=== PATIENT | male | born 1955 | race African-American/Black ===

== ENCOUNTER 2021-05-27 12:53 | Inpatient (IN) | payer BC, OTHER ==
[2021-05-27 13:38] VITALS: BMI 24.3
[2021-05-27] MEDS ORDERED: methaDONE HCL 10 MG TABLET (FOR DETOX USE ONLY) PO ONE (16:39)
[2021-05-27] MEDS ORDERED: IBUPROFEN 400 MG TABLET (FP) PO PRN (16:55)
[2021-05-27] MEDS ORDERED: MAGNESIUM HYDROX 2400MG/30ML ORAL SUSPENSION 30 ML CUP PO PRN (16:55)
[2021-05-27] MEDS ORDERED: BISMUTH SUBSALICYLATE 524 MG/30 ML PO PRN (16:55)
[2021-05-27] MEDS ORDERED: NICOTINE 10 MG CARTRIDGE (INHALER) IH PRN (16:55)
[2021-05-27] MEDS ORDERED: MAG HYDROX/AL HYDROX/SIMETH 30 ML UNIT-DOSE CUP PO PRN (16:55)
[2021-05-27] MEDS ORDERED: ONDANSETRON *ODT* 4 MG TABLET SL PRN (16:55)
[2021-05-27] MEDS ORDERED: METHOCARBAMOL 500 MG TABLET PO PRN (16:55)
[2021-05-27] MEDS ORDERED: MENTHOL/PHENOL 1 EACH UD MM PRN (16:55)
[2021-05-27] MEDS ORDERED: ACETAMINOPHEN 325 MG TABLET (FP) PO PRN ×2 (16:55)
[2021-05-27] MEDS ORDERED: MAGNESIUM CITRATE 300 ML BOTTLE PO PRN (16:55)
[2021-05-27] MEDS: cloNIDine HCL 0.1 MG TABLET PO PRN (18:45)
[2021-05-27] MEDS: hydrOXYzine PAMOATE 25 MG CAPSULE (FP) PO SCH ×2 (19:35→22:25)
[2021-05-27] MEDS: MELATONIN 5 MG TABLETS PO SCH (22:25)
[2021-05-27] MEDS: THIAMINE HCL 100 MG TABLET (FP) PO SCH (22:25)
[2021-05-28] MEDS: hydrOXYzine PAMOATE 25 MG CAPSULE (FP) PO SCH ×3 (06:43→15:19)
[2021-05-28 11:33] LABS: HEMATOCRIT 35.7 % (35.4-49); HEMOGLOBIN 11.8 GM/dL (11.7-16.9); MCH 27.7 pg (25.7-33.7); MCHC 33.1 g/dl (32.0-35.9); MEAN CELL VOLUME 83.6 fl (80-96); PLATELET COUNT 163 10^3/uL (134-434); RBC 4.28 M/mm3 (4.00-5.60); RDW 18.6 % (11.9-15.9); WHITE BLOOD COUNT 5.6 K/mm3 (4.0-10.0)
[2021-05-28] MEDS: cloNIDine HCL 0.1 MG TABLET PO PRN (11:34)
[2021-05-28] MEDS: PRENATAL VITAMINS W/ FOLIC ACID TABLET (FP) PO SCH (11:35)
[2021-05-28 11:38] LABS: BLOOD UREA NITROGEN 11.4 mg/dL (7-18)
[2021-05-28 11:39] LABS: ALBUMIN 3.2 g/dl (3.4-5.0); CALCIUM 8.9 mg/dL (8.5-10.1)
[2021-05-28 11:44] LABS: BILIRUBIN,TOTAL 1.1 mg/dL (0.2-1); TOT PROT 6.9 g/dl (6.4-8.2)
[2021-05-28] MEDS: MELATONIN 5 MG TABLETS PO SCH (22:49)
[2021-05-28] MEDS: THIAMINE HCL 100 MG TABLET (FP) PO SCH (22:49)
[2021-05-29] MEDS: cloNIDine HCL 0.1 MG TABLET PO PRN (08:31)
[2021-05-29] MEDS: hydrOXYzine PAMOATE 25 MG CAPSULE (FP) PO PRN ×3 (08:31→22:10)
[2021-05-29] MEDS ORDERED: methaDONE HCL 10 MG TABLET (FOR DETOX USE ONLY) PO ONE (10:00)
[2021-05-29] MEDS: PRENATAL VITAMINS W/ FOLIC ACID TABLET (FP) PO SCH (10:36)
[2021-05-29] MEDS ORDERED: PENICILLIN G BENZATHINE 2,400,000 UNIT/4 ML PFS IM ONE (12:41)
[2021-05-29] MEDS: THIAMINE HCL 100 MG TABLET (FP) PO SCH (22:10)
[2021-05-29] MEDS: MELATONIN 5 MG TABLETS PO SCH (22:10)
[2021-05-29 23:00] VITALS: TEMP 96.9
[2021-05-30] MEDS ORDERED: cloNIDine HCL 0.1 MG TABLET PO ONE (09:15)
[2021-05-30 09:30] VITALS: BP 159/105; PULSE 67
== END 2021-05-30 09:20 | disposition home or self-care (01) | DRG 897 ==
LOC: YASAS 12:53 → Y3N 17:07
PROVIDERS: ADMIT Allergy & Immunology; ATTEND Allergy & Immunology
PROC: HZ2ZZZZ Detoxification Services for Substance Abuse Treatment (ICD-10-PCS; principal; 2021-05-27)
DX: F11.23 Opioid dependence with withdrawal (principal); F14.20 Cocaine dependence, uncomplicated; F17.210 Nicotine dependence, cigarettes, uncomplicated; A53.0 Latent syphilis, unspecified as early or late
CPT/HCPCS: 36415; 71046-TC-FY; 80053; 85027; 86593; 86780; C9803; J0735; U0003; U0005

== ENCOUNTER 2021-11-12 13:22 | Inpatient (IN) | payer BC, OTHER ==
[2021-11-12 14:58] VITALS: BMI 27.1
[2021-11-12] MEDS ORDERED: ACETAMINOPHEN 325 MG TABLET (FP) PO PRN ×2 (15:48)
[2021-11-12] MEDS ORDERED: MAGNESIUM CITRATE 300 ML BOTTLE PO PRN (15:48)
[2021-11-12] MEDS ORDERED: NALOXONE (NARCAN) HCL 4 MG/0.1 ML SPRAY NS PRN (15:48)
[2021-11-12] MEDS ORDERED: MAG HYDROX/AL HYDROX/SIMETH 30 ML UNIT-DOSE CUP PO PRN (15:48)
[2021-11-12] MEDS ORDERED: MENTHOL/PHENOL 1 EACH UD MM PRN (15:48)
[2021-11-12] MEDS ORDERED: MAGNESIUM HYDROX 2400MG/30ML ORAL SUSPENSION 30 ML CUP PO PRN (15:48)
[2021-11-12] MEDS ORDERED: cloNIDine HCL 0.1 MG TABLET PO PRN (15:48)
[2021-11-12] MEDS ORDERED: methaDONE HCL 10 MG TABLET (FOR DETOX USE ONLY) PO ONE (15:48)
[2021-11-12] MEDS ORDERED: BISMUTH SUBSALICYLATE 524 MG/30 ML PO PRN (15:48)
[2021-11-12] MEDS ORDERED: ONDANSETRON *ODT* 4 MG TABLET SL PRN (15:48)
[2021-11-12] MEDS ORDERED: LOPERAMIDE HCL 2 MG CAPSULE PO PRN (15:48)
[2021-11-12] MEDS ORDERED: NICOTINE 10 MG CARTRIDGE (INHALER) IH PRN (15:48)
[2021-11-12] MEDS ORDERED: IBUPROFEN 400 MG TABLET (FP) PO PRN (15:48)
[2021-11-12] MEDS: hydrOXYzine PAMOATE 25 MG CAPSULE (FP) PO SCH ×2 (17:55→22:29)
[2021-11-12] MEDS: MELATONIN 5 MG TABLETS PO SCH (22:29)
[2021-11-12] MEDS: THIAMINE HCL 100 MG TABLET (FP) PO SCH (22:29)
[2021-11-13] MEDS: hydrOXYzine PAMOATE 25 MG CAPSULE (FP) PO SCH ×5 (06:38→23:06)
[2021-11-13 11:01] LABS: HEMATOCRIT 32.2 % (35.4-49); HEMOGLOBIN 10.8 GM/dL (11.7-16.9); MCH 28.2 pg (25.7-33.7); MCHC 33.6 g/dl (32.0-35.9); MEAN CELL VOLUME 83.8 fl (80-96); MEAN PLT VOLUME 8.6 fl (7.5-11.1); PLATELET COUNT 158 10^3/uL (134-434); RBC 3.84 M/mm3 (4.00-5.60); RDW 16.6 % (11.9-15.9); WHITE BLOOD COUNT 5.6 K/mm3 (4.0-10.0)
[2021-11-13] MEDS ORDERED: methaDONE HCL 10 MG TABLET (FOR DETOX USE ONLY) ONE (11:05)
[2021-11-13] MEDS: PRENATAL VITAMINS W/ FOLIC ACID TABLET (FP) PO SCH (11:07)
[2021-11-13 11:13] LABS: BLOOD UREA NITROGEN 16.4 mg/dL (7-18); CALCIUM 8.2 mg/dL (8.5-10.1)
[2021-11-13 11:18] LABS: BILIRUBIN,TOTAL 0.4 mg/dL (0.2-1)
[2021-11-13 11:21] LABS: TOT PROT 6.1 g/dl (6.4-8.2)
[2021-11-13] MEDS: THIAMINE HCL 100 MG TABLET (FP) PO SCH (23:06)
[2021-11-13] MEDS: MELATONIN 5 MG TABLETS PO SCH (23:06)
[2021-11-14] MEDS: hydrOXYzine PAMOATE 25 MG CAPSULE (FP) PO SCH ×5 (08:39→23:00)
[2021-11-14] MEDS ORDERED: methaDONE HCL 10 MG TABLET (FOR DETOX USE ONLY) PO ONE (10:00)
[2021-11-14] MEDS: PRENATAL VITAMINS W/ FOLIC ACID TABLET (FP) PO SCH (11:13)
[2021-11-14] MEDS: THIAMINE HCL 100 MG TABLET (FP) PO SCH (23:00)
[2021-11-14] MEDS: MELATONIN 5 MG TABLETS PO SCH (23:00)
[2021-11-15] MEDS: hydrOXYzine PAMOATE 25 MG CAPSULE (FP) PO SCH ×5 (07:14→23:12)
[2021-11-15] MEDS ORDERED: methaDONE HCL 10 MG TABLET (FOR DETOX USE ONLY) ONE (09:16)
[2021-11-15] MEDS: PRENATAL VITAMINS W/ FOLIC ACID TABLET (FP) PO SCH (10:15)
[2021-11-15] MEDS: diazePAM 5 MG TABLET PO PRN ×2 (10:15→17:53)
[2021-11-15] MEDS: METHOCARBAMOL 500 MG TABLET PO PRN (10:16)
[2021-11-15] MEDS ORDERED: cloNIDine HCL 0.1 MG TABLET PO PRN (11:36)
[2021-11-15] MEDS: HYDROCHLOROTHIAZIDE 25 MG TABLET (FP) PO SCH (15:06)
[2021-11-15] MEDS: THIAMINE HCL 100 MG TABLET (FP) PO SCH (23:12)
[2021-11-15] MEDS: MELATONIN 5 MG TABLETS PO SCH (23:12)
[2021-11-16] MEDS: hydrOXYzine PAMOATE 25 MG CAPSULE (FP) PO SCH ×6 (07:51→22:06)
[2021-11-16] MEDS ORDERED: methaDONE HCL 10 MG TABLET (FOR DETOX USE ONLY) PO ONE (10:00)
[2021-11-16] MEDS: diazePAM 5 MG TABLET PO PRN (10:25)
[2021-11-16] MEDS: METHOCARBAMOL 500 MG TABLET PO PRN (10:32)
[2021-11-16] MEDS: HYDROCHLOROTHIAZIDE 25 MG TABLET (FP) PO SCH (10:32)
[2021-11-16] MEDS: PRENATAL VITAMINS W/ FOLIC ACID TABLET (FP) PO SCH (10:33)
[2021-11-16] MEDS: MELATONIN 5 MG TABLETS PO SCH (22:06)
[2021-11-16] MEDS: THIAMINE HCL 100 MG TABLET (FP) PO SCH (22:06)
[2021-11-17] MEDS: hydrOXYzine PAMOATE 25 MG CAPSULE (FP) PO SCH ×2 (06:07→10:48)
[2021-11-17 10:41] VITALS: BP 121/67; PULSE 66; TEMP 98.2
[2021-11-17] MEDS: HYDROCHLOROTHIAZIDE 25 MG TABLET (FP) PO SCH (10:48)
[2021-11-17] MEDS: PRENATAL VITAMINS W/ FOLIC ACID TABLET (FP) PO SCH (10:49)
== END 2021-11-17 11:07 | disposition home or self-care (01) | DRG 897 ==
LOC: YASAS 13:22 → Y3N 17:28
PROVIDERS: ADMIT Allergy & Immunology; ATTEND Allergy & Immunology
PROC: HZ2ZZZZ Detoxification Services for Substance Abuse Treatment (ICD-10-PCS; principal; 2021-11-12)
DX: F11.23 Opioid dependence with withdrawal (principal); F14.20 Cocaine dependence, uncomplicated; F17.210 Nicotine dependence, cigarettes, uncomplicated; A53.0 Latent syphilis, unspecified as early or late; I10 Essential (primary) hypertension; Z86.19 Personal history of other infectious and parasitic diseases; Z91.018 Allergy to other foods
CPT/HCPCS: 36415; 80053; 85027; 86593; 86780; C9803; J0735; U0003; U0005

== ENCOUNTER 2021-12-24 12:32 | Inpatient (IN) | payer BC, OTHER ==
[2021-12-24] MEDS ORDERED: METHOCARBAMOL 500 MG TABLET PO PRN (13:37)
[2021-12-24] MEDS ORDERED: MAG HYDROX/AL HYDROX/SIMETH 30 ML UNIT-DOSE CUP PO PRN (13:37)
[2021-12-24] MEDS ORDERED: BENZOCAINE/MENTHOL (CHLORASEPTIC ) LOZENGE MM PRN (13:37)
[2021-12-24] MEDS ORDERED: LOPERAMIDE HCL 2 MG CAPSULE PO PRN (13:37)
[2021-12-24] MEDS ORDERED: ACETAMINOPHEN 325 MG TABLET (FP) PO PRN ×2 (13:37)
[2021-12-24] MEDS ORDERED: MAGNESIUM CITRATE 300 ML BOTTLE PO PRN (13:37)
[2021-12-24] MEDS ORDERED: BISMUTH SUBSALICYLATE 524 MG/30 ML PO PRN (13:37)
[2021-12-24] MEDS ORDERED: ONDANSETRON *ODT* 4 MG TABLET SL PRN (13:37)
[2021-12-24] MEDS ORDERED: IBUPROFEN 400 MG TABLET (FP) PO PRN (13:37)
[2021-12-24] MEDS ORDERED: DICYCLOMINE HCL 10 MG CAPSULE PO PRN (13:37)
[2021-12-24] MEDS ORDERED: MAGNESIUM HYDROX 2400MG/30ML ORAL SUSPENSION 30 ML CUP PO PRN (13:37)
[2021-12-24] MEDS ORDERED: NALOXONE HCL (KLOXXADO) 8 MG SPRAY NS PRN (13:45)
[2021-12-24] MEDS ORDERED: methaDONE HCL 10 MG TABLET (FOR DETOX USE ONLY) PO ONE (15:30)
[2021-12-24 16:07] VITALS: BMI 23.7
[2021-12-24 17:07] LABS: HEMATOCRIT 38.4 % (35.4-49); HEMOGLOBIN 12.1 GM/dL (11.7-16.9); MCHC 31.6 g/dl (32.0-35.9); MEAN CELL VOLUME 85.4 fl (80-96); MEAN PLT VOLUME 8.7 fl (7.5-11.1); PLATELET COUNT 266 10^3/uL (134-434); RDW 16.6 % (11.9-15.9); WHITE BLOOD COUNT 4.9 K/mm3 (4.0-10.0)
[2021-12-24 17:16] LABS: ALBUMIN 3.8 g/dl (3.4-5.0); BLOOD UREA NITROGEN 12.5 mg/dL (7-18)
[2021-12-24 17:21] LABS: BILIRUBIN,TOTAL 0.7 mg/dL (0.2-1); TOT PROT 7.3 g/dl (6.4-8.2)
[2021-12-24] MEDS ORDERED: BUPRENORPHINE HCL 150 MCG, BUPRENORPHINE HCL 75 MCG BC PRN (18:36)
[2021-12-24] MEDS ORDERED: cloNIDine HCL 0.1 MG TABLET PO ONE (18:36)
[2021-12-24] MEDS ORDERED: BUPRENORPHINE HCL 150 MCG, BUPRENORPHINE HCL 75 MCG BC ONE (18:36)
[2021-12-24] MEDS ORDERED: diazePAM 5 MG TABLET PO PRN (18:36)
[2021-12-24] MEDS ORDERED: BUPRENORPHINE HCL 150 MCG FILM BC ONE (18:43)
[2021-12-24] MEDS ORDERED: BUPRENORPHINE HCL 75 MCG FILM BC ONE (18:44)
[2021-12-24] MEDS: hydrOXYzine PAMOATE 25 MG CAPSULE (FP) PO SCH ×3 (18:46→22:49)
[2021-12-24] MEDS ORDERED: cloNIDine HCL 0.1 MG TABLET PO PRN (22:37)
[2021-12-24] MEDS: MELATONIN 5 MG TABLETS PO SCH (22:49)
[2021-12-24] MEDS: THIAMINE HCL 100 MG TABLET (FP) PO SCH (22:49)
[2021-12-25] MEDS ORDERED: BUPRENORPHINE HCL 150 MCG, BUPRENORPHINE HCL 75 MCG BC PRN
[2021-12-25] MEDS ORDERED: BUPRENORPHINE HCL 75 MCG FILM BC ONE ×2 (04:36→17:16)
[2021-12-25] MEDS ORDERED: BUPRENORPHINE HCL 150 MCG FILM BC ONE ×2 (04:36→17:15)
[2021-12-25] MEDS: hydrOXYzine PAMOATE 25 MG CAPSULE (FP) PO SCH ×5 (06:13→22:41)
[2021-12-25] MEDS: BUPRENORPHINE HCL 150 MCG, BUPRENORPHINE HCL 75 MCG BC SCH ×2 (06:13→18:00)
[2021-12-25] MEDS: PRENATAL VITAMINS W/ FOLIC ACID TABLET (FP) PO SCH (11:29)
[2021-12-25] MEDS: HYDROCHLOROTHIAZIDE 25 MG TABLET (FP) PO SCH ×2 (11:30→12:23)
[2021-12-25] MEDS: NICOTINE 10 MG CARTRIDGE (INHALER) IH PRN (18:11)
[2021-12-25] MEDS: THIAMINE HCL 100 MG TABLET (FP) PO SCH (22:41)
[2021-12-25] MEDS: MELATONIN 5 MG TABLETS PO SCH (22:41)
[2021-12-26] MEDS ORDERED: methaDONE HCL 10 MG TABLET (FOR DETOX USE ONLY) PO ONE (10:00)
[2021-12-26] MEDS: hydrOXYzine PAMOATE 25 MG CAPSULE (FP) PO SCH ×5 (10:39→22:40)
[2021-12-26] MEDS: HYDROCHLOROTHIAZIDE 25 MG TABLET (FP) PO SCH (10:39)
[2021-12-26] MEDS: BUPRENORPHINE HCL 450 MCG FILM BC SCH ×2 (10:39→17:43)
[2021-12-26] MEDS: PRENATAL VITAMINS W/ FOLIC ACID TABLET (FP) PO SCH (10:41)
[2021-12-26 15:09] LABS: SARS-CoV-2 NAA Not Detected (Not Detected)
[2021-12-26] MEDS: cloNIDine HCL 0.1 MG TABLET PO PRN ×2 (20:31→22:41)
[2021-12-26] MEDS: THIAMINE HCL 100 MG TABLET (FP) PO SCH (22:40)
[2021-12-26] MEDS: MELATONIN 5 MG TABLETS PO SCH (22:40)
[2021-12-27] MEDS: BUPRENORPHINE/NALOXONE 4 MG/1 MG FILM PACKET SL SCH ×2 (07:48→17:42)
[2021-12-27] MEDS: hydrOXYzine PAMOATE 25 MG CAPSULE (FP) PO SCH ×5 (07:49→22:25)
[2021-12-27] MEDS: HYDROCHLOROTHIAZIDE 25 MG TABLET (FP) PO SCH (10:33)
[2021-12-27] MEDS: PRENATAL VITAMINS W/ FOLIC ACID TABLET (FP) PO SCH (10:34)
[2021-12-27] MEDS: NICOTINE 10 MG CARTRIDGE (INHALER) IH PRN (15:57)
[2021-12-27] MEDS: MELATONIN 5 MG TABLETS PO SCH (22:25)
[2021-12-27] MEDS: THIAMINE HCL 100 MG TABLET (FP) PO SCH (22:25)
[2021-12-28] MEDS ORDERED: BUPRENORPHINE/NALOXONE 8 MG/2 MG FILM PACKET SL ONE (06:00)
[2021-12-28] MEDS: hydrOXYzine PAMOATE 25 MG CAPSULE (FP) PO SCH (06:39)
[2021-12-28 08:54] VITALS: BP 141/84; PULSE 59; TEMP 98.4
[2021-12-28] MEDS ORDERED: methaDONE HCL 10 MG TABLET (FOR DETOX USE ONLY) PO ONE (10:00)
== END 2021-12-28 09:19 | disposition home or self-care (01) | DRG 897 ==
LOC: YASAS 12:32 → Y3N 17:07
PROVIDERS: ADMIT Allergy & Immunology; ATTEND Allergy & Immunology
PROC: HZ2ZZZZ Detoxification Services for Substance Abuse Treatment (ICD-10-PCS; principal; 2021-12-24)
DX: F11.23 Opioid dependence with withdrawal (principal); F14.20 Cocaine dependence, uncomplicated; F10.10 Alcohol abuse, uncomplicated; F17.210 Nicotine dependence, cigarettes, uncomplicated; I10 Essential (primary) hypertension; M17.11 Unilateral primary osteoarthritis, right knee; Z86.19 Personal history of other infectious and parasitic diseases; Z91.014 Allergy to mammalian meats; Z56.0 Unemployment, unspecified; Z59.00 Homelessness unspecified
CPT/HCPCS: 36415; 80053; 85027; 86593; 86780; C9803-CS; J0735; U0003; U0005

== ENCOUNTER 2022-01-13 14:34 | Inpatient (IN) | payer BC, OTHER ==
[2022-01-13 16:41] VITALS: BMI 23.6
[2022-01-13] MEDS ORDERED: IBUPROFEN 400 MG TABLET (FP) PO PRN (16:47)
[2022-01-13] MEDS ORDERED: BISMUTH SUBSALICYLATE 524 MG/30 ML PO PRN (16:47)
[2022-01-13] MEDS ORDERED: diazePAM 5 MG TABLET PO PRN (16:47)
[2022-01-13] MEDS ORDERED: cloNIDine HCL 0.1 MG TABLET PO ONE (16:47)
[2022-01-13] MEDS ORDERED: ACETAMINOPHEN 325 MG TABLET (FP) PO PRN ×2 (16:47)
[2022-01-13] MEDS ORDERED: BUPRENORPHINE HCL 150 MCG, BUPRENORPHINE HCL 75 MCG BC ONE (16:47)
[2022-01-13] MEDS ORDERED: MAGNESIUM HYDROX 2400MG/30ML ORAL SUSPENSION 30 ML CUP PO PRN (16:47)
[2022-01-13] MEDS ORDERED: LOPERAMIDE HCL 2 MG CAPSULE PO PRN (16:47)
[2022-01-13] MEDS ORDERED: ONDANSETRON *ODT* 4 MG TABLET SL PRN (16:47)
[2022-01-13] MEDS ORDERED: BENZOCAINE/MENTHOL (CHLORASEPTIC ) LOZENGE MM PRN (16:47)
[2022-01-13] MEDS ORDERED: NICOTINE 10 MG CARTRIDGE (INHALER) IH PRN (16:47)
[2022-01-13] MEDS ORDERED: MAGNESIUM CITRATE 300 ML BOTTLE PO PRN (16:47)
[2022-01-13] MEDS ORDERED: METHOCARBAMOL 500 MG TABLET PO PRN (16:47)
[2022-01-13] MEDS ORDERED: BUPRENORPHINE HCL 150 MCG, BUPRENORPHINE HCL 75 MCG BC PRN (16:47)
[2022-01-13] MEDS ORDERED: DICYCLOMINE HCL 10 MG CAPSULE PO PRN (16:47)
[2022-01-13] MEDS ORDERED: MAG HYDROX/AL HYDROX/SIMETH 30 ML UNIT-DOSE CUP PO PRN (16:47)
[2022-01-13] MEDS ORDERED: ERGOCALCIFEROL (VIT D2) 50,000 UNIT (1.25 MG) CAPSULE PO SCH (17:00)
[2022-01-14] MEDS ORDERED: BUPRENORPHINE HCL 150 MCG, BUPRENORPHINE HCL 75 MCG BC PRN
[2022-01-14] MEDS ORDERED: BUPRENORPHINE HCL 75 MCG FILM BC ONE ×2 (01:56→18:01)
[2022-01-14] MEDS ORDERED: BUPRENORPHINE HCL 150 MCG FILM BC ONE ×2 (01:56→18:00)
[2022-01-14] MEDS: BUPRENORPHINE HCL 150 MCG, BUPRENORPHINE HCL 75 MCG BC SCH ×2 (06:53→18:39)
[2022-01-14] MEDS: hydrOXYzine PAMOATE 25 MG CAPSULE (FP) PO SCH ×6 (10:42→23:01)
[2022-01-14] MEDS: METHYL SALICYLATE/MENTHOL OINT 30 GM TUBE TP SCH ×3 (10:42→23:00)
[2022-01-14] MEDS: PRENATAL VITAMINS W/ FOLIC ACID TABLET (FP) PO SCH (10:42)
[2022-01-14] MEDS: cloNIDine HCL 0.1 MG TABLET PO PRN (17:16)
[2022-01-14] MEDS: THIAMINE HCL 100 MG TABLET (FP) PO SCH ×2 (17:58→23:01)
[2022-01-14] MEDS: MELATONIN 5 MG TABLETS PO SCH ×2 (17:58→23:01)
[2022-01-15] MEDS: hydrOXYzine PAMOATE 25 MG CAPSULE (FP) PO SCH ×5 (05:36→23:19)
[2022-01-15] MEDS: BUPRENORPHINE HCL 450 MCG FILM BC SCH ×2 (08:27→17:31)
[2022-01-15] MEDS: PRENATAL VITAMINS W/ FOLIC ACID TABLET (FP) PO SCH (10:25)
[2022-01-15] MEDS: METHYL SALICYLATE/MENTHOL OINT 30 GM TUBE TP SCH ×2 (10:29→23:20)
[2022-01-15 14:08] LABS: SARS-CoV-2 NAA Not Detected (Not Detected)
[2022-01-15] MEDS: MELATONIN 5 MG TABLETS PO SCH (23:19)
[2022-01-15] MEDS: THIAMINE HCL 100 MG TABLET (FP) PO SCH (23:19)
[2022-01-16] MEDS: cloNIDine HCL 0.1 MG TABLET PO PRN ×2 (05:59→10:45)
[2022-01-16] MEDS: hydrOXYzine PAMOATE 25 MG CAPSULE (FP) PO SCH ×5 (05:59→22:32)
[2022-01-16] MEDS: BUPRENORPHINE/NALOXONE 4 MG/1 MG FILM PACKET SL SCH ×2 (06:01→18:24)
[2022-01-16] MEDS: PRENATAL VITAMINS W/ FOLIC ACID TABLET (FP) PO SCH (10:45)
[2022-01-16] MEDS: METHYL SALICYLATE/MENTHOL OINT 30 GM TUBE TP SCH ×2 (10:46→22:33)
[2022-01-16 13:52] LABS: HEMATOCRIT 36.3 % (35.4-49); HEMOGLOBIN 11.6 GM/dL (11.7-16.9); MCH 26.7 pg (25.7-33.7); MCHC 31.9 g/dl (32.0-35.9); MEAN CELL VOLUME 83.6 fl (80-96); PLATELET COUNT 174 10^3/uL (134-434); RBC 4.34 M/mm3 (4.00-5.60); RDW 16.2 % (11.9-15.9); WHITE BLOOD COUNT 5.5 K/mm3 (4.0-10.0)
[2022-01-16 14:27] LABS: ALBUMIN 3.4 g/dl (3.4-5.0); CALCIUM 9.1 mg/dL (8.5-10.1)
[2022-01-16 14:28] LABS: BLOOD UREA NITROGEN 12.5 mg/dL (7-18)
[2022-01-16 14:32] LABS: BILIRUBIN,TOTAL 0.5 mg/dL (0.2-1); TOT PROT 6.6 g/dl (6.4-8.2)
[2022-01-16] MEDS: THIAMINE HCL 100 MG TABLET (FP) PO SCH (22:32)
[2022-01-16] MEDS: MELATONIN 5 MG TABLETS PO SCH (22:32)
[2022-01-17] MEDS: hydrOXYzine PAMOATE 25 MG CAPSULE (FP) PO SCH (05:23)
[2022-01-17] MEDS ORDERED: BUPRENORPHINE/NALOXONE 8 MG/2 MG FILM PACKET SL ONE (06:00)
[2022-01-17 06:18] VITALS: BP 126/89; PULSE 59; TEMP 96.7
[2022-01-17] MEDS ORDERED: amLODIPine BESYLATE 5 MG TABLET (FP) PO SCH (10:00)
== END 2022-01-17 09:54 | disposition home or self-care (01) | DRG 897 ==
LOC: YASAS 14:34 → Y3N 01-14 01:15
PROVIDERS: ADMIT Allergy & Immunology; ATTEND Surgery
PROC: HZ2ZZZZ Detoxification Services for Substance Abuse Treatment (ICD-10-PCS; principal; 2022-01-14)
DX: F11.23 Opioid dependence with withdrawal (principal); F14.20 Cocaine dependence, uncomplicated; F17.210 Nicotine dependence, cigarettes, uncomplicated; F32.A Depression, unspecified; I10 Essential (primary) hypertension; M17.10 Unilateral primary osteoarthritis, unspecified knee; R76.8 Other specified abnormal immunological findings in serum; R76.11 Nonspecific reaction to tuberculin skin test without active tuberculosis; Z91.014 Allergy to mammalian meats; Z56.0 Unemployment, unspecified; Z59.00 Homelessness unspecified
CPT/HCPCS: 36415; 80053; 85027; 86593; 86780; C9803-CS; J0735; Q0162; U0003; U0005